=== PATIENT | male | born 1990 | race African-American/Black ===

== ENCOUNTER 2018-12-23 03:24 | Emergency (ER) | payer BC, OTHER | END 2018-12-23 04:46 | disposition home or self-care (01) | LOC: EDH 03:24 | DX: J02.9 Acute pharyngitis, unspecified (principal); R53.81 Other malaise; R53.83 Other fatigue; Z88.6 Allergy status to analgesic agent | CPT/HCPCS: 87880 ==

== ENCOUNTER → 2021-02-06 | Outpatient (CLI) | payer OTHER ==
[~2021-02-06] MED LIST: GADOTERATE MEGLUMINE 10 MMOL/20 ML VIAL IV ONE
== END | disposition home or self-care (01) ==
LOC: RAH 09:25
PROVIDERS: ATTEND Urology
DX: R19.00 Intra-abdominal and pelvic swelling, mass and lump, unspecified site (principal)
CPT/HCPCS: 72197; A9575

== ENCOUNTER → 2023-03-06 | Outpatient (CLI) | payer OTHER | END | disposition home or self-care (01) | LOC: RAH 15:15 | PROVIDERS: ATTEND Internal Medicine | DX: M23.90 Unspecified internal derangement of unspecified knee (principal); R06.02 Shortness of breath | CPT/HCPCS: 71046; 73562 ==

== ENCOUNTER 2024-05-27 09:08 | Emergency (ER) | payer OTHER ==
[~2024-05-27] VITALS: Ht 188 cm; Wt 81.6 kg
[2024-05-27 09:10] VITALS: BP 128/83
[2024-05-27 09:57] LABS: BASOPHILS # (AUTO) 0.05 K/uL (0.00-0.20); BASOPHILS % (AUTO) 1.2 % (0.0-5.0); EOSINOPHILS # (AUTO) 0.27 K/uL (0.00-0.70); EOSINOPHILS % (AUTO) 6.4 % (0.0-8.0); HEMATOCRIT 41.2 % (42-54); IMMATURE GRANULOCYTE ABSOLUTE 0.01 K/uL (0-1); LYMPHOCYTES # (AUTO) 1.8 K/uL (1.0-4.8); LYMPHOCYTES % (AUTO) 43.7 % (21.0-51.0); MEAN CORPUSCULAR HEMOGLOBIN 30.8 pg (27.0-33.0); MEAN CORPUSCULAR HGB CONC 33.3 g/dL (32.0-36.0); MEAN CORPUSCULAR VOLUME 92.6 fL (79-99); MONOCYTES # (AUTO) 0.3 K/uL (0.1-1.0); MONOCYTES % (AUTO) 7.9 % (3.0-13.0); NEUTROPHILS # (AUTO) 1.7 K/uL (1.8-7.7); NEUTROPHILS % (AUTO) 40.6 % (40.0-77.0); PLATELET COUNT (AUTO) 201 K/uL (130-400); RED BLOOD CELL COUNT(AUTO) 4.45 MIL/uL (4.50-6.20); RED CELL DISTRIBUTION WIDTH 12.6 % (11.0-15.5); WHITE BLOOD COUNT (AUTO) 4.2 K/uL (4.8-10.8)
[2024-05-27 10:01] LABS: CREATININE 1.1 mg/dL (0.5-1.3); POTASSIUM 4.1 mmol/L (3.5-5.1)
[2024-05-27] MEDS: PROCHLORPERAZINE 10MG/2ML INJ IV ONE (10:10)
[2024-05-27] MEDS: DiphenhydrAMINE HCL 50 MG/ML VIAL IV ONE (10:10)
[2024-05-27] MEDS: 0.9%NACL 1000ML 1,000 ML IV ONE (10:10)
[2024-05-27 10:16] LABS: APPEARANCE,URINE CLEAR (CLEAR); BILIRUBIN,URINE NEGATIVE (NEGATIVE); COLOR,URINE LIGHT-YELLOW (YELLOW); GLUCOSE, URINE (UA) NEGATIVE (NEGATIVE); KETONES,URINE NEGATIVE (NEGATIVE); LEUKOCYTE ESTERASE ,URINE NEGATIVE Leu/uL (NEGATIVE); NITRATE,URINE NEGATIVE (NEGATIVE); OCCULT BLOOD,URINE NEGATIVE (NEGATIVE); PROTEIN,URINE NEGATIVE (NEGATIVE); UROBILINOGEN,URINE 0.2 mg/dL (0.2-1.0)
--- NOTE | 2024-05-27 10:36 | HMCIMG ---
CT HEAD/BRAIN W/O CONTRAST HISTORY: Right-sided headaches COMPARISON: None TECHNIQUE: Multiple sequential axial images of the head were obtained from the base of the skull through vertex. Patient was not given contrast through intravenous route. FINDINGS: The ventricles and extraventricular CSF spaces are nondilated for patient's age. There is no midline shift, mass effect or herniation. No acute intracranial bleed is seen. Visualized portion of the paranasal sinuses are grossly within normal limits. IMPRESSION: 1. No acute intracranial bleed is seen. CT was performed with one or more following dose reduction techniques: automated exposure control, adjustment of the mA and kv according to patient's size, or use of a iterative reconstruction technique.
--- NOTE | 2024-05-27 10:46 | ERN ---
General Chief Complaint: Headache Stated Complaint: HEADACHE Time Seen by MD: 09:10 Source: patient History of Present Illness Initial Comments PATIENT IS A 34-YEAR-OLD MALE COMING IN TO BE EVALUATED FOR RIGHT SIDED HEADACHE. HE STATES THAT HE DOES HAVE A HISTORY OF HEADACHES BUT THIS TIME THE PAIN HAS BEEN MORE INTENSE AND HAS NOT BEEN RELIEVED WITH PAIN MEDICATIONS. NO FEVER NO CHILLS NO NAUSEA NO VOMITING. Allergies: Coded Allergies: acetaminophen (Unverified Allergy, Unknown, 12/23/18) Past Medical History Past Medical History: No Pertinent History Past Surgical History: None ROS Dictation CONSTITUTIONAL: NO CHILLS, NO FEVER, NO WEAKNESS, NO DIAPHORESIS, NO MALAISE. HEAD/FACE: NO SIGNS OF TRAUMA. EENT: NO EYE PAIN, NO BLURRED VISION, NO TEARING, NO DOUBLE VISION, NO EAR PAIN, NO EAR DISCHARGE, NO NOSE PAIN, NO NASAL CONGESTION, NO THROAT PAIN, NO THROAT SWELLING, NO MOUTH PAIN. RESPIRATORY: NO COUGH, NO ORTHOPNEA, NO SOB, NO STRIDOR, NO WHEEZING. CARDIOVASCULAR: NO CHEST PAIN, NO EDEMA, NO PALPITATIONS, NO SYNCOPE. GASTROINTESTINAL/ABDOMINAL: NO ABDOMINAL PAIN, NO CONSTIPATION, NO DIARRHEA, NO NAUSEA, NO VOMITING. GENITOURINARY: NO ABNORMAL DISCHARGE, NO DYSURIA, NO FREQUENT URINATION, NO HEMATURIA. NO COMPLAINTS OF PAIN IN THE GENITALS. MUSCULOSKELETAL: NO BACK PAIN, NO GOUT, NO JOINT PAIN, NO JOINT SWELLING, NO MUSCLE PAIN, NO MUSCLE STIFFNESS, NO NECK PAIN. INTEGUMENTARY: NO CHANGE IN COLOR, NO CHANGE IN HAIR/NAILS, NO DRYNESS, NO LESION, NO LUMPS, NO RASH. NEUROLOGICAL/PSYCH: NO ANXIETY, NOT DEPRESSED, NO EMOTIONAL PROBLEM, NO HEADACHE, NO NUMBNESS, NO PRE-EXISTING DEFICIT, NO HISTORY OF SEIZURES, NO TREMORS, NO WEAKNESS. HEMATOLOGIC/LYMPHATIC: NOT ANEMIC, NO HISTORY OF BLOOD CLOTS, NO APPARENT BLEEDING, NO BRUISING, GLANDS NOT SWOLLEN. ALL SYSTEMS NEGATIVE, EXCEPT NOTED. Physical Exam Physical Exam Dictation VITAL SIGNS: REVIEWED. GENERAL APPEARANCE: ALERT, ORIENTED X3, NO ACUTE DISTRESS, OBESE. HEAD AND FACE: NON-TRAUMATIC. EYES: PERRL, PINK CONJUNCTIVAS, EYELID NO TRAUMA, ANTERIOR CHAMBER CLEAR. EARS: PINNAS INTACT AND NO SIGNS OF TRAUMA OR ERYTHEMA. EAR CANALS CLEAR AND NO DISCHARGE. TMS ERYTHEMA. NOSE: NO DISCHARGE, NO BLEEDING. BILATERAL NASAL TURBINATE SWELLING OROPHARYNX: MOUTH NORMAL, TEETH NO CARIES, TONGUE PINK. PHARYNX CLEAR, ERYTHEMA. TONSILS NO EXUDATES, NO ABSCESSES NOTED. MUCOUS MEMBRANE MOIST. NECK: SUPPLE, NON-TENDER, NO THYROMEGALY, NO MASSES, NO JVD, NO BRUITS. BREAST: DEFERRED. CHEST: NO TENDERNESS, NO CREPITUS, NO PARADOXICAL MOVEMENT, NO RETRACTIONS. LUNGS: CLEAR, WELL-VENTILATED, SYMMETRIC, NO RALES, NO WHEEZING, NO RHONCHI, NO STRIDOR, GOOD BREATH SOUNDS BILATERALLY. HEART: REGULAR RATE, REGULAR RHYTHM, NO MURMUR, NO GALLOPS. VASCULAR: NO PERIPHERAL EDEMA. ABDOMEN: SOFT, POSITIVE BOWEL SOUNDS, NONDISTENDED, NO GUARDING, NONTENDER, NO REBOUND, NO MASSES NO HEPATOMEGALY, NO SPLENOMEGALY, NO DAVIS'S SIGN, NO HERNIAS. RECTAL: DEFERRED. GENITAL: DEFERRED. NEUROLOGICAL: NORMAL SPEECH, GROSS MOTOR FUNCTION INTACT, GROSS SENSORY FUNCTION INTACT. MUSCULOSKELETAL: NECK NONTENDER, FULL RANGE OF MOTION, BACK NONTENDER, FULL RANGE OF MOTION. EXTREMITIES: NONTENDER, FULL RANGE OF MOTION. SKIN: COLOR PINK, DRY, NO TURGOR, NO RASH, NO LACERATIONS, NO ABRASIONS, NO CONTUSIONS. LYMPHATICS: DEFERRED. Results Laboratory and Microbiology Lab and Micro Result Laboratory Tests Test 05/27/24 09:46 White Blood Count 4.2 K/uL (4.8-10.8) L Red Blood Count 4.45 MIL/uL (4.50-6.20) L Hemoglobin 13.7 g/dL (14.0-18.0) L Hematocrit 41.2 % (42-54) L Mean Corpuscular Volume 92.6 fL (79-99) Mean Corpuscular Hemoglobin 30.8 pg (27.0-33.0) Mean Corpuscular Hemoglobin Concent 33.3 g/dL (32.0-36.0) Red Cell Distribution Width 12.6 % (11.0-15.5) Platelet Count 201 K/uL (130-400) Mean Platelet Volume 9.8 fL (7.5-10.5) Immature Granulocyte % (Auto) 0.2 % (0-1) Neutrophils (%) (Auto) 40.6 % (40.0-77.0) Lymphocytes (%) (Auto) 43.7 % (21.0-51.0) Monocytes (%) (Auto) 7.9 % (3.0-13.0) Eosinophils (%) (Auto) 6.4 % (0.0-8.0) Basophils (%) (Auto) 1.2 % (0.0-5.0) Neutrophils # (Auto) 1.7 K/uL (1.8-7.7) L Lymphocytes # (Auto) 1.8 K/uL (1.0-4.8) Monocytes # (Auto) 0.3 K/uL (0.1-1.0) Eosinophils # (Auto) 0.27 K/uL (0.00-0.70) Basophils # (Auto) 0.05 K/uL (0.00-0.20) Absolute Immature Granulocyte (auto 0.01 K/uL (0-1) Nucleated Red Blood Cells 0.0 % (0.0-0.19) Sodium Level 135 mmol/L (136-145) L Potassium Level 4.1 mmol/L (3.5-5.1) Chloride Level 100 mmol/L (101-111) L Carbon Dioxide Level 33 mmol/L (21-32) H Blood Urea Nitrogen 11 mg/dL (7-18) Creatinine 1.1 mg/dL (0.5-1.3) Glomerular Filtration Rate Calc 89 mL/min (>90) Random Glucose 91 mg/dL (70-105) Total Calcium 9.2 mg/dL (8.5-10.1) Labs Reviewed?: Yes EKG/XRAY/US/CT/MRI CT Scan Comment [address] [address] [place] [address] IMAGING REPORT Signed PATIENT: TOVA GALLO II MR#: [id number] : 1990 SEX: M AGE: 34 LOCATION: [facility] ORDER 7 STATUS: REG ER REPORT#: [id number] SERVICE 6 REASON: RIGHT SIDED HEADACHE ORDERING PHYSICIAN: ALE HUERTA MD PROCEDURE: HEAD WO - CT HEAD/BRAIN W/O CONTRAST CT HEAD/BRAIN W/O CONTRAST HISTORY: Right-sided headaches COMPARISON: None TECHNIQUE: Multiple sequential axial images of the head were obtained from the base of the skull through vertex. Patient was not given contrast through intravenous route. FINDINGS: The ventricles and extraventricular CSF spaces are nondilated for patient's age. There is no midline shift, mass effect or herniation. No acute intracranial bleed is seen. Visualized portion of the paranasal sinuses are grossly within normal limits. IMPRESSION: 1. No acute intracranial bleed is seen. CT was performed with one or more following dose reduction techniques: automated exposure control, adjustment of the mA and kv according to patient's size, or use of a iterative reconstruction technique. DICTATED BY: SHYAM FULLER MD DATE: 05/27/24 1033 ELECTRONICALLY SIGNED BY: SHYAM FULLER MD DATE: 05/27/24 1036 [facility] [place] MDM: DIFFERENTIAL DIAGNOSIS: SINUSITIS, TENSION HEADACHE, DEHYDRATION PATIENT IS A 28 MALE COMING IN TO BE EVALUATED FOR RIGHT-SIDED HEADACHE. PATIE NT STATES THAT THE PAIN HAS BEEN ONGOING FOR A COUPLE OF DAYS AND WAS CONCERNED SO HE DECIDED TO COME IN TO BE EVALUATED. NEUROLOGICALLY PATIENT IS INTACT BUT BECAUSE OF THE INCREASED PAIN THAT HE PRESENTED WITH A CT OF THE HEAD WAS PERFORMED NEGATIVE FOR ACUTE FINDINGS. LABORATORY WORKUP POSITIVE FOR DEHYDRATION. PATIENT REFUSED IV FLUIDS PATIENT REFUSED SWABS AND HE ALSO REFUS ED PAIN MEDS. THE PATIENT WILL BE DISCHARGED IN STABLE CONDITION WITH A DIAGNOSIS OF TENSION HEADACHE WITH SINUSITIS. THROUGHOUT ER VISIT PATIENT HAS BEEN STABLE. ED Course Orders Procedure Category Date Status Time Cbc With Differential LAB 05/27/24 Complete 09:31 Urinalysis Profile LAB 05/27/24 In Process 09:31 Basic Metabolic Panel LAB 05/27/24 Complete 09:31 0.9%Nacl 1000ml (Ns PHA 05/27/24 Complete 1000ml) 10:00 Covid Rna Naat LAB 05/27/24 Logged 09:31 Influenza Type A & B, LAB 05/27/24 Logged Rapid 09:31 Prochlorperazine PHA 05/27/24 Complete 10mg/2ml Inj 10:00 Diphenhydramine Hcl PHA 05/27/24 Complete (Benadryl Inj) 10:00 Ct Head/Brain W/O CT 05/27/24 Resulted Contrast 09:37 Current Medications Medications (Trade) Dose Ordered Sig/Shazia Route PRN Reason Start Time Stop Time Status Last Admin Dose Admin Diphenhydramine HCl (BENAdryl INJ) 25 mg ONCE ONCE IV 05/27/24 10:00 05/27/24 10:01 DC Prochlorperazine Edisylate (Compazine 10mg/ 2ml Inj) 10 mg ONCE ONCE IV 05/27/24 10:00 05/27/24 10:01 DC Sodium Chloride 1,000 ml @ 0 mls/hr ONCE ONCE IV 05/27/24 10:00 05/27/24 10:01 DC Vital Signs Date Time Temp Pulse Resp B/P (MAP) Pulse Ox O2 Delivery O2 Flow Rate FiO2 05/27/24 09:10 98.8 59 20 128/83 98 Room Air 0 DX & DISP Disposition: Discharge Departure Impression: Primary Impression: Tension headache Additional Impression: Sinusitis Condition: Stable Scripts Amoxicillin/Potassium Clav (Amox Tr-K Clv 875-125 mg Tab) 875 Mg-125 Mg Tablet 1 TAB PO BID for 10 Days, #20 TAB 0 Refills Prov: ALE HUERTA MD 05/27/24 Additional Instructions: FOLLOW-UP WITH PRIMARY CARE PROVIDER IN 1 TO 2 DAYS. TAKE MEDICATIONS DIRECTED HERE IN THE EMERGENCY ROOM. OKAY TO CONTINUE HOME MEDICATIONS UNLESS OTHERWISE DISCUSSED DURING YOUR VISIT IN THE EMERGENCY ROOM TODAY. RETURN TO YOUR NEAREST EMERGENCY ROOM IF SYMPTOMS WORSEN OR IF THERE IS NO IMPROVEMENT. CALL 911 IF YOU NEED IMMEDIATE ASSISTANCE. TAKE TYLENOL [id number] NEEDED AND IF NO CONTRAINDICATIONS ARE PRESENT. INCREASE ORAL HYDRATION. A WOUND CULTURE OR URINE CULTURE WAS ORDERED HERE IN THE EMERGENCY ROOM DEPARTMENT PLEASE FOLLOW-UP WITH PRIMARY CARE PROVIDER AND ADVISE THEM TO GET REPEAT PORTS FROM OUR FACILITY. IF YOU HAD ANY JANELL WRAP/SPLINTS THAT WERE APPLIED HERE, PLEASE DO NOT REMOVE THEM UNTIL YOU SEE YOUR PRIMARY CARE OR SPECIALTY. REFERRALS: Referrals: SELF,REFERRAL (PCP) ROBYN DRISCOLL MD Time of Disposition: 10:50 ALE HUERTA MD May 27, 2024 10:46
[2024-05-27 10:49] LABS: ADD UA MICROSCOPIC NO
[2024-05-27] MEDS ORDERED: AMOX1TAB16 PO (10:50)
[2024-05-27 11:22] VITALS: PULSE 84; RESP 18; TEMP 97.4; O2SAT 97
== END 2024-05-27 11:20 | disposition home or self-care (01) ==
LOC: EEVIPCON 09:08 → EDH 09:08
DX: G44.209 Tension-type headache, unspecified, not intractable (principal); J32.9 Chronic sinusitis, unspecified; Z88.8 Allergy status to other drugs, medicaments and biological substances
CPT/HCPCS: 36415; 70450; 80048; 81003; 85025; J0780; J1200; J7030